=== PATIENT | male | born 1965 | race Caucasian/White ===

== ENCOUNTER 2025-06-30 22:48 | Emergency (ER) | payer BC, SELFPAY ==
[2025-06-30 22:49] VITALS: BP 183/105
[2025-06-30 23:33] VITALS: BP 178/99
--- NOTE | 2025-07-01 01:00 | ED.GENMED ---
History of Present Illness
General
Chief Complaint: Visual Problem
Time Seen by Provider: 07/01/25 00:19
History of Present Illness
History of Present Illness:
60-year-old male with history of hypertension presents to the emergency department for evaluation of a right sided visual anomaly that occurred earlier tonight. Describes linear waves of black floaters that he describes as 'blood dripping down' in
his central vision that seem to wax and wane over the course of the day. No vision loss or eye pain/headache associated with this. Currently describes floaters. No recent head trauma. No nausea or vomiting. No fever
Past History
Past History
ED Past Medical History: HTN and Other (kidney stones, perirectal abscess)
ED Past Surgical History: Appendectomy and Other (Perirectal abscess drainage)
Social History
Tobacco: Non-smoker
Alcohol: None
Drug: None
Personal:
Living: with family
Employment: Employed
Family History
Family History: Other (Noncontributory)
Review of Systems
Review of Systems
Allergies reviewed?: Yes
All Other Systems: ROS reviewed and negative except as documented in HPI and ROS
Phy Exam
Physical Exam
Physical Exam:
GEN: Well appearing, NAD, WDWN
HEENT: Oral mucosa moist, no scleral icterus. No conjunctival injection bilaterally. Pupils equal round and reactive to light bilateral. Extraocular motion normal bilaterally.
Cardiac: Regular rate
Lung: No respiratory distress, no tachypnea
MSK: No gross deformity or injuries
Skin: Good color, no pallor or jaundice, no rashes
Neuro: AO x3, moves all extremities freely
Psych: Calm, cooperative
Course
Vital Signs
Initial and Last Documented VS:
Initial Vital Signs
BP Pulse Ox
183/105 100
06/30/25 22:49 06/30/25 22:49
Last Documented Vital Signs
Temp Resp BP Pulse Ox
98.6 F 18 178/99 98
06/30/25 22:57 06/30/25 23:00 06/30/25 23:33 07/01/25 01:00
MDM/Problems Addressed
MDM/Problems Addressed:
Bedside ultrasound performed by myself shows no evidence for vitreous hemorrhage or retinal detachment bilaterally. Some visible floaters are seen in the vitreous on the right eye. Symptoms of concern at this time retinal hemorrhage or vitreous
hemorrhage, I have recommended close ophthalmology follow-up as these could be initial sentinel events suggesting impending retinal disease or vitreous disease. No vision loss or headache concerning for giant cell arteritis, carotid
dissection/carotid occlusion, or retinal artery occlusion.
*Pulse Oximetry
SaO2: 98
Oxygen Mode of Delivery: Room air
Patient hypoxic: no
*Critical Care Note
Total Time (30-74mins, 75-104mins- exclusive of procedures): Not Applicable
ED Attending Note
-
Portions of this chart may have been created with voice recognition software.� Occasional wrong word or��sound alike� substitutions may have occurred due to the inherent limitations of voice recognition software.
Discharge Plan
Departure
Patient Disposition: Home (Routine Discharge)
Date of Disposition: 07/01/25
Time of Disposition: 01:00
Patient with high blood pressure during this ER visit?: No
Discharge Problem:
Vitreous floaters of right eye
Instructions: Floaters in the Eye
Prescriptions:
No Action
metoprolol tartrate 25 MG tablet
50 mg PO DAILY
Patient Comments:
Wrong med
levocetirizine 5 MG tablet
5 mg PO DAILY
Metoprolol Succinate Pill
50 mg PO DAILY
amoxicillin-pot clavulanate 1 TABLET tablet
1 tab PO Q12 Qty: 10 0RF
Referrals:
Kerwin Oliver MD [Family Provider, Internal Medicine]
Activity Restrictions/Additional Instructions:
This could possibly be a sign of a developing vitreous detachment, however the ultrasound shows no signs for this. You will need to see your eye doctor within 1-2 weeks for re-evaluation, or more urgently if you develop increased symptoms, eye pain
or headache
Interventions
Interventions:
*General Assessment Last Done: 06/30/25 22:49
*Neglect/Abuse Screening Last Done: 06/30/25 22:49
*ED COVID-19 Vaccine History Last Done: 07/01/25 01:17
*ED Influenza Vaccine History Last Done: 07/01/25 01:17
[facility] Fall Risk Assessment Tool Last Done: 06/30/25 23:38
*Risk Screen - Suicide (C-SSRS) Last Done: 06/30/25 22:49
*Nursing Disposition Last Done: 07/01/25 01:17
ED- Neurological Assessment Last Done: 06/30/25 23:38
ED-EENT Assessment Last Done: 06/30/25 23:38
ED Swallowing Screen Last Done: 06/30/25 23:38
Discharge Date and Time
Discharge Date/Time: 07/01/25 01:17
Print Language: YI
== END 2025-07-01 01:17 | disposition home or self-care (01) ==
LOC: EMR 22:48
PROVIDERS: EMERGENCY PHYSICIAN Student in an Organized Health Care Education/Training Program; FAMILY PHYSICIAN Internal Medicine
DX: H43.391 Other vitreous opacities, right eye (principal); I10 Essential (primary) hypertension
CPT/HCPCS: 99283